=== PATIENT | female | born 1970 | race Hispanic/Latino ===

== ENCOUNTER 2017-07-20 15:17 | Emergency (ER) | payer MEDICAID ==
--- NOTE | 2017-07-20 16:20 | Emergency Department Report ---
ED Psych HPI - General Chief Complaint: Psych Stated Complaint: PSYCH Time Seen by Provider: 07/20/17 16:20 Source: patient Mode of arrival: Ambulatory - History of Present Illness Initial Comments: Patient is a 46-year-old female past medical history of asthma and depression who presents with suicidal ideation. Patient states that she's had a lot of stress in her life no support. She says that her stress is severe she states that she plans on taking pills to kill herself and that she is increased her drinking and she hasn't been eating. Patient denies having a homicidal ideation. She states that she sees physicians when she closes her eyes. Patient also says that she had some mild wheezing. Nothing makes it better or worse. She states that she has COPD and has been smoking for several years. - Related Data Home Medications Medication Instructions Recorded Confirmed Last Taken Atenolol [Tenormin] 12.5 mg PO DAILY 03/12/15 03/12/15 Unknown Bethanechol [Urecholine] 25 mg PO Q8HR 03/12/15 03/12/15 Unknown Calcium Carbonate/Vitamin D3 1 each PO DAILY 03/12/15 03/12/15 Unknown [Calcium 600 + Vit D3 Tablet] Meloxicam [Mobic] 7.5 mg PO BID 03/12/15 03/12/15 Unknown Montelukast Sodium [Singulair] 10 mg PO DAILY 03/12/15 03/12/15 Unknown Ondansetron [Zofran] 8 mg PO Q8HR PRN 03/12/15 03/12/15 Unknown Pregabalin [Lyrica] 300 mg PO BID 03/12/15 03/12/15 Unknown QUEtiapine [SEROquel] 400 mg PO HS 03/12/15 03/12/15 Unknown Ranitidine HCl [Zantac] 150 mg PO BID 03/12/15 03/12/15 Unknown Zolpidem Tartrate [Ambien] 10 mg PO HS 03/12/15 03/12/15 Unknown carBAMazepine [TEGretol] 200 mg PO DAILY 03/12/15 03/12/15 Unknown carBAMazepine [TEGretol] 400 mg PO HS 03/12/15 03/12/15 Unknown hydrOXYZINE PAMOATE [hydrOXYzine 50 mg PO BID 03/12/15 03/12/15 Unknown Pamoate] Previous Rx's Medication Instructions Recorded Last Taken Type HYDROcodone/APAP 5-325 [[place] 2 each PO Q6HR PRN #20 tablet 03/12/15 Unknown Rx 5/325] Allergies Allergy/AdvReac Type Severity Reaction Status Date / Time No Known Allergies Allergy Unverified 03/12/15 12:54 ED Review of Systems ROS: Stated complaint: PSYCH Other details as noted in HPI Constitutional: denies: chills, fever Eyes: denies: eye pain, eye discharge, vision change ENT: denies: ear pain, throat pain Respiratory: cough, SOB with exertion. denies: shortness of breath, wheezing Cardiovascular: denies: chest pain, palpitations Endocrine: no symptoms reported Gastrointestinal: denies: abdominal pain, nausea, diarrhea Genitourinary: denies: urgency, dysuria, discharge Musculoskeletal: denies: back pain, joint swelling, arthralgia Skin: denies: rash, lesions Neurological: denies: headache, weakness, paresthesias Psychiatric: depression, suicidal thoughts. denies: anxiety Hematological/Lymphatic: denies: easy bleeding, easy bruising ED Past Medical Hx - Past Medical History Hx Seizures: Yes Hx Psychiatric Treatment: Yes (Bi Polar, PTSD, Panic) - Surgical History Past Surgical History?: Yes Additional Surgical History: Hysterectomy - Social History Smoking Status: Current Every Day Smoker Substance Use Type: None - Medications Home Medications: Home Medications Medication Instructions Recorded Confirmed Last Taken Type Atenolol [Tenormin] 12.5 mg PO DAILY 03/12/15 03/12/15 Unknown History Bethanechol [Urecholine] 25 mg PO Q8HR 03/12/15 03/12/15 Unknown History Calcium Carbonate/Vitamin D3 1 each PO DAILY 03/12/15 03/12/15 Unknown History [Calcium 600 + Vit D3 Tablet] HYDROcodone/APAP 5-325 [[place] 2 each PO Q6HR PRN #20 tablet 03/12/15 Unknown Rx 5/325] Meloxicam [Mobic] 7.5 mg PO BID 03/12/15 03/12/15 Unknown History Montelukast Sodium [Singulair] 10 mg PO DAILY 03/12/15 03/12/15 Unknown History Ondansetron [Zofran] 8 mg PO Q8HR PRN 03/12/15 03/12/15 Unknown History Pregabalin [Lyrica] 300 mg PO BID 03/12/15 03/12/15 Unknown History QUEtiapine [SEROquel] 400 mg PO HS 03/12/15 03/12/15 Unknown History Ranitidine HCl [Zantac] 150 mg PO BID 03/12/15 03/12/15 Unknown History Zolpidem Tartrate [Ambien] 10 mg PO HS 03/12/15 03/12/15 Unknown History carBAMazepine [TEGretol] 200 mg PO DAILY 03/12/15 03/12/15 Unknown History carBAMazepine [TEGretol] 400 mg PO HS 03/12/15 03/12/15 Unknown History hydrOXYZINE PAMOATE [hydrOXYzine 50 mg PO BID 03/12/15 03/12/15 Unknown History Pamoate] ED Physical Exam - General Limitations: No Limitations General appearance: alert, in no apparent distress - Head Head exam: Present: atraumatic, normocephalic - Eye Eye exam: Present: normal appearance - ENT ENT exam: Present: mucous membranes moist - Neck Neck exam: Present: normal inspection - Respiratory Respiratory exam: Present: wheezes. Absent: respiratory distress - Cardiovascular Cardiovascular Exam: Present: regular rate, normal rhythm. Absent: systolic murmur, diastolic murmur, rubs, gallop - GI/Abdominal GI/Abdominal exam: Present: soft, normal bowel sounds - Extremities Exam Extremities exam: Present: normal inspection - Back Exam Back exam: Present: normal inspection - Neurological Exam Neurological exam: Present: alert, oriented X3 - Psychiatric Psychiatric exam: Present: depressed, suicidal ideation - Skin Skin exam: Present: warm, dry, intact, normal color. Absent: rash ED Course Vital Signs 07/20/17 07/20/17 07/20/17 15:28 16:11 17:14 Temperature 98.2 F Pulse Rate 86 Pulse Rate [ 84 Anterior Bilateral Throughout] Respiratory 16 18 Rate Respiratory 20 Rate [Anterior Bilateral Throughout] Blood Pressure 130/86 O2 Sat by Pulse 98 100 Oximetry 07/20/17 18:01 Temperature Pulse Rate Pulse Rate [ 121 H Anterior Bilateral Throughout] Respiratory Rate Respiratory 20 Rate [Anterior Bilateral Throughout] Blood Pressure O2 Sat by Pulse Oximetry ED Medical Decision Making - Lab Data Result diagrams: 07/20/17 16:23 07/20/17 16:23 Lab Results 07/20/17 07/20/17 07/20/17 Range/Units 16:23 16:23 16:23 WBC (4.5-11.0) K/mm3 RBC (3.65-5.03) M/mm3 Hgb (10.1-14.3) gm/dl Hct (30.3-42.9) % MCV (79-97) fl MCH (28-32) pg MCHC (30-34) % RDW (13.2-15.2) % Plt Count (140-440) K/mm3 Lymph % (Auto) (13.4-35.0) % [place] % (Auto) (0.0-7.3) % Eos % (Auto) (0.0-4.3) % Baso % (Auto) (0.0-1.8) % Lymph # (1.2-5.4) K/mm3 [place] # (0.0-0.8) K/mm3 Eos # (0.0-0.4) K/mm3 Baso # (0.0-0.1) K/mm3 Seg Neutrophils % (40.0-70.0) % Seg Neutrophils # (1.8-7.7) K/mm3 Sodium 138 (137-145) mmol/L Potassium 3.6 (3.6-5.0) mmol/L Chloride 96.1 L (98-107) mmol/L Carbon Dioxide 28 (22-30) mmol/L Anion Gap 18 mmol/L BUN 2 L (7-17) mg/dL Creatinine 0.5 L (0.7-1.2) mg/dL Estimated GFR > 60 ml/min BUN/Creatinine Ratio 4.00 % Glucose 90 (65-100) mg/dL Calcium 9.6 (8.4-10.2) mg/dL Urine Color Yellow (Yellow) Urine Turbidity Clear (Clear) Urine pH 6.0 (5.0-7.0) Ur Specific [place] 1.003 (1.003-1.030) Urine Protein <15 mg/dl (Negative) mg/dL Urine Glucose (UA) Neg (Negative) mg/dL Urine Ketones Neg (Negative) mg/dL Urine Blood Neg (Negative) Urine Nitrite Neg (Negative) Urine Bilirubin Neg (Negative) Urine Urobilinogen < 2.0 (<2.0) mg/dL Ur Leukocyte Esterase Neg (Negative) Urine WBC (Auto) < 1.0 (0.0-6.0) /HPF Urine RBC (Auto) 3.0 (0.0-6.0) /HPF U Epithel Cells (Auto) < 1.0 (0-13.0) /HPF Plasma/Serum Alcohol < 0.01 (0-0.07) gm% 07/20/ Range/Units 16:23 WBC 7.2 (4.5-11.0) K/mm3 RBC 4.69 (3.65-5.03) M/mm3 Hgb 14.2 (10.1-14.3) gm/dl Hct 42.9 (30.3-42.9) % MCV 92 (79-97) fl MCH 30 (28-32) pg MCHC 33 (30-34) % RDW 14.8 (13.2-15.2) % Plt Count 318 (140-440) K/mm3 Lymph % (Auto) 38.0 H (13.4-35.0) % [place] % (Auto) 5.4 (0.0-7.3) % Eos % (Auto) 0.7 (0.0-4.3) % Baso % (Auto) 0.7 (0.0-1.8) % Lymph # 2.8 (1.2-5.4) K/mm3 [place] # 0.4 (0.0-0.8) K/mm3 Eos # 0.0 (0.0-0.4) K/mm3 Baso # 0.0 (0.0-0.1) K/mm3 Seg Neutrophils % 55.2 (40.0-70.0) % Seg Neutrophils # 4.0 (1.8-7.7) K/mm3 Sodium (137-145) mmol/L Potassium (3.6-5.0) mmol/L Chloride (98-107) mmol/L Carbon Dioxide (22-30) mmol/L Anion Gap mmol/L BUN (7-17) mg/dL Creatinine (0.7-1.2) mg/dL Estimated GFR ml/min BUN/Creatinine Ratio % Glucose (65-100) mg/dL Calcium (8.4-10.2) mg/dL Urine Color (Yellow) Urine Turbidity (Clear) Urine pH (5.0-7.0) Ur Specific [place] (1.003-1.030) Urine Protein (Negative) mg/dL Urine Glucose (UA) (Negative) mg/dL Urine Ketones (Negative) mg/dL Urine Blood (Negative) Urine Nitrite (Negative) Urine Bilirubin (Negative) Urine Urobilinogen (<2.0) mg/dL Ur Leukocyte Esterase (Negative) Urine WBC (Auto) (0.0-6.0) /HPF Urine RBC (Auto) (0.0-6.0) /HPF U Epithel Cells (Auto) (0-13.0) /HPF Plasma/Serum Alcohol (0-0.07) gm% - Medical Decision Making Chief medical diagnosis: Suicidal ideation Differential medical diagnosis: depression, generalized anxiety disorder, COPD, substance induced mood disorder I will CBC, CMP, IV steroids, IV Ativan, albuterol nebs, and urine drug screen and I will sign a 1013 on the patient. Critical care attestation.: If time is entered above; I have spent that time in minutes in the direct care of this critically ill patient, excluding procedure time. ED Disposition Clinical Impression: Suicidal ideation, Wheezing Depression Qualifiers: Depression Type: unspecified Qualified Code(s): F32.9 - Major depressive disorder, single episode, unspecified Disposition: DC/TX-65 PSY HOSP/PSY UNIT Is pt being admited?: No Does the pt Need Aspirin: No Condition: Stable
[2017-07-20 17:02] LABS: Blood Urea Nitrogen 2 mg/dL (7-17); Calcium 9.6 mg/dL (8.4-10.2); Carbon Dioxide 28 mmol/L (22-30); Glucose 90 mg/dL (65-100)
[2017-07-20 17:03] LABS: Anion Gap 18 mmol/L; Chloride 96.1 mmol/L (98-107); Potassium 3.6 mmol/L (3.6-5.0); Sodium 138 mmol/L (137-145)
[2017-07-20] MEDS ORDERED: PROVENTIL IH ONE (17:03)
[2017-07-20] MEDS ORDERED: ATIVAN IV ONE (17:03)
[2017-07-20 17:04] LABS: Bilirubin,Urine NEG (Negative); Blood,Urine NEG (Negative); Ketones,Urine NEG (Negative); Leukocyte Esterase,Urine NEG (Negative); Nitrite,Urine NEG (Negative); Protein,Urine <15 mg/dL mg/dL (Negative); Urobilinogen,Urine < 2.0 mg/dL (<2.0); WBC,Urine < 1.0 /HPF (0.0-6.0)
[2017-07-20] MEDS ORDERED: ATROVENT IH ONE (17:04)
[2017-07-20 17:19] LABS: Basophils % (Auto) 0.7 % (0.0-1.8); Eosinophils % (Auto) 0.7 % (0.0-4.3); Hematocrit 42.9 % (30.3-42.9); Hemoglobin 14.2 gm/dl (10.1-14.3); Mean Corpuscular HGB Conc 33 % (30-34); Mean Corpuscular Hemoglobin 30 pg (28-32); Mean Corpuscular Volume 92 fl (79-97); Platelet Count 318 K/mm3 (140-440); Red Blood Count 4.69 M/mm3 (3.65-5.03); Red Cell Distribution Width 14.8 % (13.2-15.2); White Blood Count 7.2 K/mm3 (4.5-11.0)
[2017-07-20 21:53] LABS: Urine Drugs of Abuse Note Disclamer
[2017-07-21] MEDS ORDERED: KEPPRA PO ONE (00:03)
[2017-07-21] MEDS ORDERED: GEODON IM ONE (00:05)
[2017-07-21] MEDS ORDERED: TOPAMAX PO SCH (10:00)
--- NOTE | 2017-07-21 13:52 | Consultation ---
History of Present Illness - Reason for Consult Consult date: 07/21/17 Reason for consult: Mental Health Evaluation Requesting physician: ALEXIA ARIZMENDI - Chief Complaint Chief complaint: "I have stress" - History of Present Psychiatric Illness Patient is a 46-year-old female past medical history of asthma and depression who presents with suicidal ideation. Today patient is calm, but anxious cooperative during the assessment. She stated that she is stressed over her life and her relationship. She stated that her boyfriend talks to much and that irritates her to the "fullest". She did not want to go into details about her life issues, she stated, "Can we talk later." She did deny SI's, but stated that she was suicidal on admission without a plan. She denies SI/HI's and AVH' s. She admitted to smoking marijuana to "calm her nerves" often. She report sleep disturbance and a poor appetite. Patient was observed eating both her breakfast and lunch. She denies alcohol consumption (etoh). She stated having an hx of Bipolar DO and anxiety and take Geodon and Vistaril. She rate her anxiety 6/10, with 10 being the worse. She stated that she have not taken her medications in a couple of week. Medications and Allergies Allergies Allergy/AdvReac Type Severity Reaction Status Date / Time No Known Allergies Allergy Unverified 03/12/15 12:54 Home Medications Medication Instructions Recorded Confirmed Last Taken Type Atenolol [Tenormin] 12.5 mg PO DAILY 03/12/15 03/12/15 Unknown History Bethanechol [Urecholine] 25 mg PO Q8HR 03/12/15 03/12/15 Unknown History Calcium Carbonate/Vitamin D3 1 each PO DAILY 03/12/15 03/12/15 Unknown History [Calcium 600 + Vit D3 Tablet] HYDROcodone/APAP 5-325 [[place] 2 each PO Q6HR PRN #20 tablet 03/12/15 Unknown Rx 5/325] Meloxicam [Mobic] 7.5 mg PO BID 03/12/15 03/12/15 Unknown History Montelukast Sodium [Singulair] 10 mg PO DAILY 03/12/15 03/12/15 Unknown History Ondansetron [Zofran] 8 mg PO Q8HR PRN 03/12/15 03/12/15 Unknown History Pregabalin [Lyrica] 300 mg PO BID 03/12/15 03/12/15 Unknown History QUEtiapine [SEROquel] 400 mg PO HS 03/12/15 03/12/15 Unknown History Ranitidine HCl [Zantac] 150 mg PO BID 03/12/15 03/12/15 Unknown History Zolpidem Tartrate [Ambien] 10 mg PO HS 03/12/15 03/12/15 Unknown History carBAMazepine [TEGretol] 200 mg PO DAILY 03/12/15 03/12/15 Unknown History carBAMazepine [TEGretol] 400 mg PO HS 03/12/15 03/12/15 Unknown History hydrOXYZINE PAMOATE [hydrOXYzine 50 mg PO BID 03/12/15 03/12/15 Unknown History Pamoate] Active Meds: Active Medications Topiramate (Topamax) 200 mg PO Q12HR JULIO Last Admin: 07/21/17 12:06 Dose: 200 mg Mental Status Exam - Vital signs Last Vital Signs Temp 98.1 F 07/21/17 12:07 Pulse 87 07/21/17 12:07 Resp 20 07/21/17 12:07 BP 106/68 07/21/17 12:07 Pulse Ox 99 07/21/17 12:07 - Exam Narrative exam: ROS: (-) psychosis MSE: Appearance: cooperative, anxious Behavior: regular eye contact Speech: regular rate and tone Mood: labile Affect: congruent to mood Thought Process: linear Thought Content: denies SI/HI's and AVH's Motor Activity: ambulatory Cognition: A/O x3 Insight: variable Judgment: variable Results Result Diagrams: 07/20/17 16:23 07/20/17 16:23 Abnormal lab results 07/20/17 07/20/17 Range/Units 16:23 16:23 Lymph % (Auto) 38.0 H (13.4-35.0) % Chloride 96.1 L (98-107) mmol/L BUN 2 L (7-17) mg/dL Creatinine 0.5 L (0.7-1.2) mg/dL All other labs normal. Assessment and Plan Assessment and plan: Impression: Historical Dx: Bipolar DO/RO. Unspecified Mood DO. Substance Use DO (marijuana). Today patient is calm, but anxious during the assessment. Positive for marijuana. DDx: R/O MDD, Substance Induced Mood DO Recommendation/Plan: Continue 1013 with placement to inpatient psy services. Start Vistaril 25 mg PO BID for anxiety and Geodon 20 mg PO BID for mood. Discusses possible metabolic side effects of Geodon.
[2017-07-21] MEDS ORDERED: GEODON PO SCH (14:06)
[2017-07-21] MEDS ORDERED: VISTARIL PO SCH (15:00)
[2017-07-21] MEDS ORDERED: TESSALON PERLES PO ONE (15:29)
[2017-07-21 20:56] VITALS: BP 124/72
== END 2017-07-21 21:02 ==
LOC: ED 15:17
DX: F31.9 Bipolar disorder, unspecified (principal); F17.210 Nicotine dependence, cigarettes, uncomplicated; R06.2 Wheezing
CPT/HCPCS: 36415; 80048; 80307; 81001; 85025; 94644; 96372; 96374; 96375; 99285; G0480; J2060; J2930; J3486; 80320; Q0177